=== PATIENT | male | born 1990 | race Caucasian/White ===

== ENCOUNTER 2020-11-24 19:09 | Emergency (ER) | payer OTHER ==
[2020-11-24] MEDS ORDERED: PERCOCET 5-3251 EACH PO (21:10)
[2020-11-24] MEDS ORDERED: CYCLOBENZAPRINE10 MG PO (21:10)
== END 2020-11-24 21:40 | disposition home or self-care (01) ==
LOC: FER 19:09
DX: S42.022A Displaced fracture of shaft of left clavicle, initial encounter for closed fracture (principal); S40.812A Abrasion of left upper arm, initial encounter; S40.811A Abrasion of right upper arm, initial encounter; S50.812A Abrasion of left forearm, initial encounter; S50.811A Abrasion of right forearm, initial encounter; S20.411A Abrasion of right back wall of thorax, initial encounter; S80.811A Abrasion, right lower leg, initial encounter; Z88.2 Allergy status to sulfonamides; Z88.5 Allergy status to narcotic agent; V27.4XXA Motorcycle driver injured in collision with fixed or stationary object in traffic accident, initial encounter; Y92.410 Unspecified street and highway as the place of occurrence of the external cause
CPT/HCPCS: 71045; 73000; 73030; 73060; 90471; 90715; 96372; J1170; J1885